=== PATIENT | female | born 1990 | race Two or more races ===

== ENCOUNTER 2017-12-01 07:17 | Day surgery (SDC) | payer OTHER ==
[~2017-12-01] VITALS: Ht 165.1 cm; Wt 86.1 kg
[2017-12-01 07:47] VITALS: BP 113/75
[2017-12-01 08:10] LABS: BASOPHIL (%) 0.9 % (0-1); BASOPHIL COUNT 0.1 K/uL (0-0.1); EOSINOPHIL (%) 2.2 % (0-5); EOSINOPHIL COUNT 0.2 K/uL (0-0.3); HEMATOCRIT 37.2 % (36.0-46.0); HEMOGLOBIN 12.1 G/DL (11.9-15.5); IMMATURE GRANULOCYTE (%) 0.2 % (0.0-0.7); LYMPHOCYTE (%) 28.7 % (15-42); LYMPHOCYTE COUNT 2.3 K/uL (1.0-2.8); MCH 30.3 PG (29.0-34.0); MCHC 32.5 G/DL (30.0-36.0); MCV 93.2 FL (83-99); MONOCYTE (%) 7.3 % (3-12); MONOCYTE COUNT 0.6 K/uL (0-0.8); NEUTROPHIL (%) 60.7 % (45-76); NEUTROPHIL COUNT 4.9 K/uL (1.8-6.4); PLATELET COUNT 335 K/uL (156-360); RBC DIS.WIDTH-CV 13.1 % (11.8-14.6); RBC DIS.WIDTH-SD 44.5 % (39-53); RED BLOOD COUNT 3.99 M/uL (3.80-5.20)
[2017-12-01] MEDS ORDERED: MOTRIN800 MG PO (09:45)
[2017-12-01] MEDS ORDERED: NORCO 5/3251 TABLET PO (09:45)
[2017-12-01 12:15] VITALS: BP 126/80
[2017-12-01 13:00] VITALS: BP 111/74
== END 2017-12-01 13:10 | disposition home or self-care (01) ==
LOC: SDC 07:17
PROVIDERS: Obstetrics & Gynecology
DX: N84.0 Polyp of corpus uteri (principal); F41.9 Anxiety disorder, unspecified; N92.6 Irregular menstruation, unspecified; E66.9 Obesity, unspecified; Z68.31 Body mass index [BMI] 31.0-31.9, adult; G93.2 Benign intracranial hypertension
CPT/HCPCS: 84702; 85025; 88305; J1100; J1170; J1885; J2250; J2405; J3010